=== PATIENT | female | born 1975 | race Caucasian/White ===

== ENCOUNTER 2024-01-02 16:00 | Inpatient (IN) | payer MEDICAID ==
[~2024-01-02] VITALS: Ht 154.9 cm; Wt 88.9 kg
[~2024-01-02 16:00] MED LIST: ALBU6.7H15 INH; CARV3.1242 PO; FURO20TA4 PO; LIP40 PO; LISI10TA26 PO; LORA10TA7 PO; METF-416 PO; SERT25TA74 PO; TOPUD MT
[2024-01-02] MEDS: KETOROLAC 30MG/ML VIAL IV STA (16:45)
[2024-01-02] MEDS: DIPHENHYDRAMINE 50MG/ML VIAL IV ONE (16:45)
[2024-01-02] MEDS: METOCLOPRAMIDE HCL 10MG/2ML VIAL IV ONE (16:45)
[2024-01-02 16:59] LABS: BASOPHILS % 0.8 % (0.0-2.0); DIFFERENTIAL COMMENT 0; EOSINOPHILS % 4.5 % (0.0-5.0); HEMATOCRIT. 38.1 % (36.0-48.0); LYMPHOCYTES % 28.6 % (20.0-50.0); MEAN CORPUSCULAR HEMOGLOBIN 22.6 pg (28.0-32.0); MEAN CORPUSCULAR HGB CONC 31.4 g/dL (31.0-37.0); MEAN CORPUSCULAR VOLUME 71.8 fL (81.0-99.0); MEAN PLATELET VOLUME 8.2 fl (7.4-10.4); MONOCYTES % 7.4 % (2.0-8.0); NEUTROPHILS % 58.7 % (40.0-76.0); PLATELET 486 x1000/uL (130-400); RED BLOOD CELL COUNT 5.31 mill/uL (4.2-5.4); RED CELL DISTRIBUTION WIDTH 17.8 % (11.6-14.6); WHITE BLOOD COUNT 10.2 x1000/uL (4.5-11.0)
[2024-01-02 17:02] LABS: CHLORIDE 105 mEq/L (98-107); POTASSIUM 3.8 mEq/L (3.5-5.1); SODIUM 138 mEq/L (136-145)
[2024-01-02 17:03] LABS: CALCIUM 9.6 mg/dL (8.7-10.4); CARBON DIOXIDE 26 mEq/L (21-32)
[2024-01-02 17:07] LABS: INR 0.9; PROTHROMBIN TIME 9.9 sec (9.6-11.0)
[2024-01-02 17:08] LABS: CREATININE 0.7 mg/dL (0.6-1.0); GLUCOSE 138 mg/dL (70-105); UREA NITROGEN BLOOD 11 mg/dL (9-23)
[2024-01-02] MEDS: MORPHINE SULFATE 4 MG/ML INJ (FOR IV/IM USE) IV ONE (18:24)
[2024-01-02] MEDS: METHYLPREDNISOLONE SOD SUCC 125MG/2ML (ACT-O-VIAL) IV ONE (18:28)
[2024-01-02] MEDS: ONDANSETRON HCL 4MG/2ML INJ IV ONE (18:28)
[2024-01-02] MEDS: IPRATROPIUM/ALBUTEROL 0.5-3(2.5)MG/3ML NEB HHN ONE (18:33)
[2024-01-02 18:42] VITALS: PULSE 66; RESP 20; O2SAT 98
[2024-01-02 18:49] LABS: BG BASE EXCESS 0.6 mmol/L (-2.0-3.0); BG CARBOXYHEMOGLOBIN 0.3 % (0.5-1.5); BG DEOXYHEMOGLOBIN 11.4 % (0.0-5.0); BG FRACTION INSPIRED OXYGEN 40; BG HCO3 ACT 25.7 mmol/L (21.0-28.0); BG METHEMOGLOBIN 0.3 % (0.5-1.5); BG OXYGEN SATURATION 88.5 % (94.0-98.0); BG PCO2 42.8 mmHg (32.0-45.0); BG PH 7.396 (7.350-7.450); BG PO2 55.8 mmHg (83.0-108.0); BG SAMPLE SITE RIGHT RADIAL; BG TOTAL HEMOGLOBIN 12.2 g/dL (12.0-16.0); BG VENT MODE NASAL CANNULA
[2024-01-02 19:25] VITALS: PULSE 65; RESP 18; O2SAT 100
[2024-01-02 19:46] LABS: TROPONIN I HIGH SENSITIVITY 15 ng/L (3.0-34)
[2024-01-02] MEDS ORDERED: GUAIFENESIN 200MG/10ML SUGAR FREE UDC PO PRN (21:15)
[2024-01-02] MEDS ORDERED: DOCUSATE SODIUM 100MG CAPSULE PO PRN (21:15)
[2024-01-02] MEDS ORDERED: IPRATROPIUM/ALBUTEROL 0.5-3(2.5)MG/3ML NEB NEB PRN (21:15)
[2024-01-02] MEDS ORDERED: NITROGLYCERIN 0.4MG TABLET SL SL PRN (21:15)
[2024-01-02] MEDS ORDERED: CLONIDINE 0.1MG TABLET PO PRN (21:15)
[2024-01-02] MEDS ORDERED: ZOLPIDEM TARTRATE 5MG TABLET PO PRN (21:15)
[2024-01-02] MEDS ORDERED: MAGNESIUM/ALUMINUM HYDROXIDE/SIMETHICONE 30ML UDC PO PRN (21:15)
[2024-01-02] MEDS ORDERED: DEXTROSE 50% WATER 50ML SYRINGE IV PRN (21:15)
[2024-01-02 21:39] VITALS: PULSE 72; RESP 20; O2SAT 98
[2024-01-02] MEDS: IPRATROPIUM/ALBUTEROL 0.5-3(2.5)MG/3ML NEB HHN SCH (21:39)
[2024-01-02 22:05] LABS: IRON 29 ug/dL (50-170); TRIGLYCERIDE 125 mg/dL (0-150)
[2024-01-02 22:06] LABS: LDL CHOLESTEROL 71 mg/dL (5-100)
[2024-01-02 22:08] LABS: CHOLESTEROL 133 mg/dL (<200); CREATINE KINASE MB FRACTION < 0.5 ng/mL (0.5-3.6); HDL CHOLESTEROL 42 mg/dL (>65); TOTAL IRON BINDING CAPACITY 312 ug/dl (250-425); TROPONIN I HIGH SENSITIVITY 16 ng/L (3.0-34)
[2024-01-02 22:09] LABS: CREATINE KINASE 66 IU/L (34-145)
[2024-01-02 22:11] LABS: FOLIC ACID (FOLATE) SERUM 15.23 ng/mL (>5.38); VITAMIN B12 SERUM 560 pg/mL (211-911)
[2024-01-02 22:12] LABS: THYROID STIMULATING HORMONE 1.73 uIU/mL (0.55-4.78)
[2024-01-02 22:49] VITALS: BP 117/62; PULSE 77; RESP 17; TEMP 36.974
[2024-01-03] VITALS (14 sets, daily range): BP systolic 92–125; BP diastolic 39–74; PULSE 56–95; RESP 13–23; TEMP 36.55848–37.05852; O2SAT 94–98
[2024-01-03] MEDS: KETOROLAC 15MG/ML VIAL IV PRN (00:38)
[2024-01-03] MEDS: INSULIN GLARGINE 100 UNITS/ML SUBCUT SCH ×2 (03:27→10:00)
[2024-01-03] MEDS: BLOOD SUGAR DIAGNOSTIC STRIP TEST SCH (06:43)
[2024-01-03 07:11] LABS: HEMOGLOBIN. 11.1 g/dL (12.0-16.0); MEAN CORPUSCULAR HEMOGLOBIN 22.5 pg (28.0-32.0); MEAN CORPUSCULAR HGB CONC 31.6 g/dL (31.0-37.0); MEAN CORPUSCULAR VOLUME 71.4 fL (81.0-99.0); MEAN PLATELET VOLUME 8.5 fl (7.4-10.4); PLATELET 450 x1000/uL (130-400); RED BLOOD CELL COUNT 4.91 mill/uL (4.2-5.4); RED CELL DISTRIBUTION WIDTH 17.9 % (11.6-14.6); WHITE BLOOD COUNT 13.3 x1000/uL (4.5-11.0)
[2024-01-03 07:20] LABS: DIFFERENTIAL COMMENT 1
[2024-01-03 07:21] LABS: CHLORIDE 105 mEq/L (98-107); POTASSIUM 4.5 mEq/L (3.5-5.1); SODIUM 136 mEq/L (136-145)
[2024-01-03 07:22] LABS: CALCIUM 9.2 mg/dL (8.7-10.4); CARBON DIOXIDE 23 mEq/L (21-32)
[2024-01-03 07:27] LABS: CREATININE 0.7 mg/dL (0.6-1.0); GLUCOSE 207 mg/dL (70-105); UREA NITROGEN BLOOD 16 mg/dL (9-23)
[2024-01-03 07:28] LABS: CREATINE KINASE MB FRACTION < 0.5 ng/mL (0.5-3.6)
[2024-01-03 07:29] LABS: ALANINE AMINOTRANSFERASE 7 IU/L (10-49); ALBUMIN 4.3 g/dL (3.2-4.8); ASPARTATE AMINOTRANSFERASE 10 IU/L (<34); BILIRUBIN TOTAL 0.4 mg/dL (0.1-1.0); PHOSPHORUS 3.7 mg/dL (2.5-4.9); PROTEIN TOTAL 7.1 g/dL (6.0-8.3); TROPONIN I HIGH SENSITIVITY 12 ng/L (3.0-34)
[2024-01-03 07:30] LABS: CREATINE KINASE 56 IU/L (34-145)
[2024-01-03] MEDS: ASPIRIN 81MG EC TABLET PO SCH (09:58)
[2024-01-03] MEDS: FAMOTIDINE 20MG TABLET PO SCH (09:58)
[2024-01-03] MEDS: GUAIFENESIN 600MG ER TABLET PO SCH (09:58)
[2024-01-03] MEDS: ENOXAPARIN 30MG/0.3ML SYR SUBCUT SCH (09:59)
[2024-01-03] MEDS: INSULIN LISPRO 100 UNITS/ML SUBCUT SCH (10:10)
[2024-01-03 10:59] LABS: BG BASE EXCESS -3.2 mmol/L (-2.0-3.0); BG CARBOXYHEMOGLOBIN 0.8 % (0.5-1.5); BG DEOXYHEMOGLOBIN 2.5 % (0.0-5.0); BG FRACTION INSPIRED OXYGEN 70; BG HCO3 ACT 21.8 mmol/L (21.0-28.0); BG METHEMOGLOBIN 0.3 % (0.5-1.5); BG OXYGEN SATURATION 97.5 % (94.0-98.0); BG OXYHEMOGLOBIN 96.4 % (94.0-98.0); BG PCO2 39.1 mmHg (32.0-45.0); BG PH 7.365 (7.350-7.450); BG PO2 95.7 mmHg (83.0-108.0); BG SAMPLE SITE RIGHT BRACHIAL; BG TOTAL HEMOGLOBIN 11.8 g/dL (12.0-16.0); BG VENT MODE HIGH FLOW
[2024-01-03 20:08] LABS: ANISOCYTOSIS 1+; HYPOCHROMASIA 1+; MICROCYTOSIS 2+; PLATELET ESTIMATE INCREASED
[2024-01-03] MEDS ORDERED: IOHEXOL-350 100 ML BOTTLE ONE (22:57)
[2024-01-04] VITALS (16 sets, daily range): BP systolic 81–119; BP diastolic 49–77; PULSE 51–76; RESP 12–27; TEMP 36.55848–37.00296; O2SAT 94–100
[2024-01-04 09:11] LABS: *AMPHETAMINES SCREEN URINE NEGATIVE (NEGATIVE); *BARBITURATES SCREEN URINE NEGATIVE (NEGATIVE); *BENZODIAZEPINES SCREEN URINE NEGATIVE (NEGATIVE)
[2024-01-04 09:12] LABS: *COCAINE SCREEN URINE NEGATIVE (NEGATIVE); CANNABINOID URINE SCREEN NEGATIVE (NEGATIVE); ECSTASY MDMA SCREEN URINE NEGATIVE (NEGATIVE); METHADONE URINE SCREEN NEGATIVE (NEGATIVE); OPIATES URINE SCREEN NEGATIVE (NEGATIVE); PHENCYCLIDINE URINE SCREEN NEGATIVE (NEGATIVE)
[2024-01-04] MEDS: BUTALBITAL/ACETAMINOPHEN/CAFFEINE 50/325/40MG TABLET PO PRN (09:19)
[2024-01-04] MEDS ORDERED: SELE800T PO (22:01)
[2024-01-04] MEDS ORDERED: BUPR-46 PO (22:04)
[2024-01-04] MEDS ORDERED: SILD20TA13 PO (22:06)
[2024-01-04] MEDS ORDERED: MACI10TA2 PO (22:08)
[2024-01-04] MEDS ORDERED: LISI20TA31 PO (22:21)
[2024-01-04] MEDS ORDERED: SERT-422 PO (22:39)
[2024-01-05] VITALS (21 sets, daily range): BP systolic 97–134; BP diastolic 51–88; PULSE 50–71; RESP 16–24; TEMP 36.61404–37.00296; O2SAT 92–99
[2024-01-05] MEDS ORDERED: LISINOPRIL 20MG TABLET PO SCH (09:00)
[2024-01-05] MEDS: SILDENAFIL CITRATE 20MG TABLET PO SCH (14:21)
[2024-01-05] MEDS ORDERED: SELEXIPAG PO SCH (21:00)
[2024-01-06] VITALS (21 sets, daily range): BP systolic 96–121; BP diastolic 53–72; PULSE 59–90; RESP 13–27; TEMP 36.44736–37.16964; O2SAT 89–98
[2024-01-06] MEDS: ACETAMINOPHEN 325MG TABLET PO PRN (03:59)
[2024-01-06] MEDS: LISINOPRIL 40MG TABLET PO SCH (10:24)
[2024-01-07] VITALS (17 sets, daily range): BP systolic 93–126; BP diastolic 49–80; PULSE 54–76; RESP 14–25; TEMP 36.55848–37.2252; O2SAT 88–99
[2024-01-08] VITALS (15 sets, daily range): BP systolic 84–125; BP diastolic 53–80; PULSE 56–69; RESP 9–26; TEMP 36.50292–37.16964; O2SAT 90–97
[2024-01-09] VITALS (16 sets, daily range): BP systolic 99–141; BP diastolic 57–113; PULSE 61–79; RESP 15–25; TEMP 36.33624–37.00296; O2SAT 85–97
[2024-01-09] MEDS ORDERED: NON FORMULARY MED PO SCH (09:00)
[2024-01-09 16:11] LABS: TROPONIN I HIGH SENSITIVITY 15 ng/L (3.0-34)
[2024-01-09 16:12] LABS: CREATINE KINASE 40 IU/L (34-145)
[2024-01-10] VITALS (16 sets, daily range): BP systolic 95–140; BP diastolic 45–79; PULSE 59–85; RESP 14–25; TEMP 35.78064–37.2252; O2SAT 90–98
[2024-01-10] MEDS ORDERED: *PATIENT'S OWN MEDICATION STORAGE XX SCH (04:00)
[2024-01-10] MEDS: ONDANSETRON HCL 4MG/2ML INJ IV PRN (13:56)
[2024-01-11] VITALS (15 sets, daily range): BP systolic 76–109; BP diastolic 40–63; PULSE 53–78; RESP 17–27; TEMP 36.33624–37.05852; O2SAT 89–99
[2024-01-11] MEDS: ACETAMINOPHEN 325MG TABLET PO PRN (23:35)
[2024-01-12] VITALS (10 sets, daily range): BP systolic 92–125; BP diastolic 56–75; PULSE 60–73; RESP 16–30; TEMP 36.78072–38.00304; O2SAT 87–95
== END 2024-01-12 16:15 | disposition home or self-care (01) | DRG 133 ==
LOC: ER 16:00 → EDBEDREQ 18:37 → EDBEDREQSVC 19:57 → EDBEDREQTM 19:57 → 3WST 22:40 → 5EST 01-03 11:42
PROVIDERS: ADMIT Internal Medicine; ATTEND Internal Medicine
PROC: 5A0935A Assistance with Respiratory Ventilation, Less than 24 Consecutive Hours, High Flow/Velocity Cannula (ICD-10-PCS; principal; 2024-01-02)
PROC: 5A0935A Assistance with Respiratory Ventilation, Less than 24 Consecutive Hours, High Flow/Velocity Cannula (ICD-10-PCS; 2024-01-03)
PROC: 5A0945A Assistance with Respiratory Ventilation, 24-96 Consecutive Hours, High Flow/Velocity Cannula (ICD-10-PCS; 2024-01-03)
PROC: 5A0935A Assistance with Respiratory Ventilation, Less than 24 Consecutive Hours, High Flow/Velocity Cannula (ICD-10-PCS; 2024-01-05)
PROC: 5A0935A Assistance with Respiratory Ventilation, Less than 24 Consecutive Hours, High Flow/Velocity Cannula (ICD-10-PCS; 2024-01-06)
PROC: 5A0935A Assistance with Respiratory Ventilation, Less than 24 Consecutive Hours, High Flow/Velocity Cannula (ICD-10-PCS; 2024-01-07)
PROC: 5A0945A Assistance with Respiratory Ventilation, 24-96 Consecutive Hours, High Flow/Velocity Cannula (ICD-10-PCS; 2024-01-07)
PROC: 5A0935A Assistance with Respiratory Ventilation, Less than 24 Consecutive Hours, High Flow/Velocity Cannula (ICD-10-PCS; 2024-01-10)
DX: J96.01 Acute respiratory failure with hypoxia (principal); I27.20 Pulmonary hypertension, unspecified; J45.901 Unspecified asthma with (acute) exacerbation; Z99.81 Dependence on supplemental oxygen; E11.9 Type 2 diabetes mellitus without complications; D72.829 Elevated white blood cell count, unspecified; E66.01 Morbid (severe) obesity due to excess calories; J98.11 Atelectasis; E78.00 Pure hypercholesterolemia, unspecified; G43.909 Migraine, unspecified, not intractable, without status migrainosus; I10 Essential (primary) hypertension; I16.9 Hypertensive crisis, unspecified; F41.9 Anxiety disorder, unspecified; R79.89 Other specified abnormal findings of blood chemistry; Z79.4 Long term (current) use of insulin; Z68.37 Body mass index [BMI] 37.0-37.9, adult
CPT/HCPCS: 36415; 36600; 71045; 71275; 80048; 80053; 80061; 80305; 82375; 82550; 82553; 82607; 82746; 82805; 82962; 83036; 83540; 83550; 83735; 83880; 84100; 84439; 84443; 84484; 85025; 93005; 93306; 93970; 94640; 99291; J1200; J1650; J1815; J1885; J2270; J2405; J2765; J2919; Q9967